=== PATIENT | male | born 1955 | race Caucasian/White ===

== ENCOUNTER 2020-06-26 22:12 | Emergency (ER) | payer MEDICARE ==
[2020-06-26] MEDS ORDERED: ONDANSETRON 4 MG/2 ML VIAL IVP STA (22:43)
[2020-06-26] MEDS ORDERED: SODIUM CHLORIDE 0.9% 1,000 ML IV STA (22:43)
[2020-06-26 23:06] LABS: BASOPHILS % (AUTO) 0.8 %; HCT - HEMATOCRIT 34.8 % (42.0-52.0); HGB - HEMOGLOBIN 11.6 g/dL (14.0-18.0); LYMPHOCYTES % (AUTO) 18.5 %; MEAN CORPUSCULAR HEMOGLOBIN 31.9 pg (27.0-31.0); MEAN CORPUSCULAR HGB CONC 33.3 g/dL (32.0-36.0); MEAN CORPUSCULAR VOLUME 95.6 fL (80.0-94.0); MEAN PLATELET VOLUME 11.4 fL (7.4-11.4); MONOCYTES % (AUTO) 15.3 %; NEUTROPHILS % (AUTO) 63.3 %; PLT - PLATELET COUNT 65 10^3/uL (130-450); RED BLOOD COUNT 3.64 10^6/uL (4.70-6.10); RED CELL DISTRIBUTION WIDTH 15.2 % (12.0-15.0); WHITE BLOOD COUNT 7.1 x10^3/uL (4.8-10.8)
[2020-06-26 23:09] LABS: ABNORMAL LYMPHS % (MANUAL) 0 %
[2020-06-26 23:17] LABS: ALBUMIN 3.8 g/dL (3.2-5.5); ALBUMIN/GLOBULIN RATIO 1.2 (1.0-2.2); CREATININE 0.8 mg/dL (0.6-1.2)
[2020-06-26 23:40] LABS: BAND NEUTROPHILS % (MANUAL) 8 %; DIFFERENTIAL COMMENT MANUAL DIFFERENTIAL; EOSINOPHILS # (MANUAL) 0.1 10^3/uL (0-0.7); LYMPHOCYTES # (MANUAL) 0.6 10^3/uL (1.5-3.5); LYMPHOCYTES % (MANUAL) 9 %; MONOCYTES # (MANUAL) 0.7 10^3/uL (0.0-1.0); NEUTROPHILS # (MANUAL) 5.7 10^3/uL (1.5-6.6); PLATELET ESTIMATE, MANUAL DECREASED (<130,000) (NORMAL); RBC MORPHOLOGY (MULTIPLE) NORMAL APPEARANCE (NORMAL)
[2020-06-27 00:29] LABS: BILIRUBIN,URINE NEGATIVE (NEGATIVE); GLUCOSE, URINE (UA) NEGATIVE (NEGATIVE); KETONES,URINE (UA) NEGATIVE (NEGATIVE); LEUKOCYTE ESTERASE, URINE NEGATIVE (NEGATIVE); NITRITE,URINE NEGATIVE (NEGATIVE); OCCULT BLOOD,URINE NEGATIVE (NEGATIVE); PROTEIN,URINE NEGATIVE (NEGATIVE); UROBILINOGEN,URINE 0.2 (NORMAL) E.U./dL (NORMAL)
[2020-06-27 00:30] LABS: CLARITY,URINE CLEAR (CLEAR)
[2020-06-27] MEDS ORDERED: NS W/20 MEQ KCL 1,000 ML IV STA (00:52)
--- NOTE | 2020-06-27 01:29 | ED Physician Documentation ---
History of Present Illness - Stated complaint Stated Complaint: DIARRHEA/VOMITING - Chief complaint Chief Complaint: Abd Pain - History obtained from History obtained from: Patient - Additonal information Additional information: 64-year-old man with history of pancreatic cancer with metastases to the liver on a second bout of chemo, ninth round recently completed 2 weeks ago, presents with diarrhea that has progressively worsened over the past couple days as well as multiple episodes of nonbloody nonbilious nausea vomiting. Patient states that he threw up 4 times today small volumes of food and was able to keep some food and water down. He also had copious small-volume diarrhea and urge to defecate today. He endorses gassiness and states that his diarrhea has not resolved with Imodium. He believes that this is a chemotherapy side effect. Denies fevers, chest pain, shortness of breath, rash. Does endorse some mid epigastric abdominal pain that is nonradiating, cramping in quality mild and nonradiating, gradual onset and constant. Review of Systems Ten Systems: 10 systems reviewed and negative Constitutional: reports: Myalgias, Fatigue, Weight Loss. denies: Fever, Chills GI: reports: Abdominal Pain, Nausea, Vomiting, Diarrhea : denies: Dysuria Skin: denies: Rash PD PAST MEDICAL HISTORY - Past Medical History Past Medical History: Yes Cardiovascular: None Respiratory: None Neuro: None Endocrine/Autoimmune: None GI: Other : None HEENT: None Psych: None Musculoskeletal: None Derm: None Other Past Medical History: PANCREATIC CANCER... - Past Surgical History Past Surgical History: No - Present Medications Home Medications: Ambulatory Orders Medication Instructions Recorded Confirmed HYDROmorphone [Dilaudid] 2 mg PO Q4H PRN #15 tablet 06/27/20 Ondansetron Odt [Zofran Odt] 4 mg TL Q6H PRN #10 tablet 06/27/20 - Allergies Allergies/Adverse Reactions: Allergies Allergy/AdvReac Type Severity Reaction Status Date / Time No Known Drug Allergies Allergy Verified 06/26/20 22:31 - Social History Does the pt smoke?: No Smoking Status: Never smoker Does the pt drink ETOH?: No Does the pt have substance abuse?: No - Immunizations Immunizations are current?: Yes - POLST Patient has POLST: No PD ED PE NORMAL - Vitals Vital signs reviewed: Yes - General General: Alert and oriented X 3, No acute distress, Well developed/nourished - HEENT HEENT: Atraumatic, PERRL, EOMI - Neck Neck: Supple, no meningeal sign - Cardiac Cardiac: RRR - Respiratory Respiratory: No respiratory distress, Clear bilaterally - Abdomen Abdomen: Non tender, Non distended, Other (Diffuse discomfort to palpation) - Back Back: No CVA TTP - Derm Derm: Normal color - Extremities Extremities: No deformity - Neuro Neuro: Alert and oriented X 3 - Psych Psych: Normal mood, Normal affect Results - Vitals Vitals: Vital Signs - 24 hr 06/26/20 06/26/20 06/27/20 22:24 22:31 00:31 Temperature 37.0 C 37 C 37 C Heart Rate 96 96 95 Respiratory 16 16 16 Rate Blood Pressure 137/84 H 135/82 H 117/67 O2 Saturation 99 99 99 06/27/20 06/27/20 02:00 02:37 Temperature 37 C 37 C Heart Rate 88 88 Respiratory 18 18 Rate Blood Pressure 120/62 120/62 O2 Saturation 98 98 Oxygen O2 Source Room air - Labs Labs: Laboratory Tests 06/26/20 06/26/20 06/27/20 22:51 22:51 00:02 WBC 7.1 RBC 3.64 L Hgb 11.6 L Hct 34.8 L MCV 95.6 H MCH 31.9 H MCHC 33.3 RDW 15.2 H Plt Count 65 L MPV 11.4 Neut # (Auto) Not Reportable Lymph # (Auto) Not Reportable [place] # (Auto) Not Reportable Eos # (Auto) Not Reportable Baso # (Auto) Not Reportable Absolute Nucleated RBC Not Reportable Total Counted 100 Band Neuts % (Manual) 8 Abnorm Lymph % (Manual) 0 Nucleated RBC % Not Reportable Neutrophils # (Manual) 5.7 Lymphocytes # (Manual) 0.6 L Monocytes # (Manual) 0.7 Eosinophils # (Manual) 0.1 Basophils # (Manual) 0.0 Differential Comment MANUAL DIFFERENTIAL Platelet Estimate DECREASED (<130,000) RBC Morph Micro Appear NORMAL APPEARANCE Sodium 134 L Potassium 3.0 L Chloride 102 Carbon Dioxide 23 Anion Gap 9.0 BUN 8 Creatinine 0.8 Estimated GFR (MDRD) 97 Glucose 109 H Calcium 9.0 Total Bilirubin 1.0 AST 29 ALT 59 Alkaline Phosphatase 147 H Total Protein 7.0 Albumin 3.8 Globulin 3.2 Albumin/Globulin Ratio 1.2 Lipase 30 Urine Color YELLOW Urine Clarity CLEAR Urine pH 6.0 Ur Specific [place] <=1.005 Urine Protein NEGATIVE Urine Glucose (UA) NEGATIVE Urine Ketones NEGATIVE Urine Occult Blood NEGATIVE Urine Nitrite NEGATIVE Urine Bilirubin NEGATIVE Urine Urobilinogen 0.2 (NORMAL) Ur Leukocyte Esterase NEGATIVE Ur Microscopic Review NOT INDICATED Urine Culture Comments NOT INDICATED PD MEDICAL DECISION MAKING - ED course ED course: Reevaluated patient after symptomatic care. He is declining potassium supplementation in the emergency room. Also declining CT, stating that he is feeling better and would like to follow-up with his oncologist as an outpatient. He gets his care in [place], [place] and is here only to see a specialist in [place]. He is planning on going home this week. Strict return precautions given. Advised patient to wear compression stockings on the plane and to follow-up with his oncologist as soon as he gets home. He is aware that he may need potassium supplementation. Departure - Departure Disposition: 01 Home, Self Care Clinical Impression: Nausea and vomiting, Diarrhea Condition: Good Instructions: Diet Clear Liquid Dc Prescriptions: HYDROmorphone [Dilaudid] 2 mg PO Q4H PRN #15 tablet PRN Reason: Pain Ondansetron Odt [Zofran Odt] 4 mg TL Q6H PRN #10 tablet PRN Reason: Nausea / Vomiting Comments: You were seen in the emergency department for nausea, vomiting and diarrhea. I hope you feel better. Please try to stay as hydrated as possible and drink Gatorade or Pedialyte. Return to the emergency department if you have any new or worsening symptoms or other concerns. Follow-up with your oncologist Dr. Dangelo as soon as possible. Discharge Date/Time: 06/27/20 02:37
[2020-06-27 02:37] VITALS: BP 120/62
== END 2020-06-27 02:37 | disposition home or self-care (01) ==
LOC: ED 22:12
DX: R19.7 Diarrhea, unspecified (principal); R11.2 Nausea with vomiting, unspecified
CPT/HCPCS: 36415; 80053; 81001; 81003; 83690; 85025; 87086; 96361; 96374; 99284

== ENCOUNTER 2020-06-28 20:14 | Emergency (ER) | payer MEDICARE ==
[2020-06-28] MEDS ORDERED: SODIUM CHLORIDE 0.9% 1,000 ML IV STA ×2 (20:33→20:35)
[2020-06-28] MEDS ORDERED: DIPHENOX/ATROPINE 2.5/0.025 MG TABLET PO STA (20:33)
[2020-06-28] MEDS ORDERED: OCTREOTIDE 100 MCG/ML VIAL SUBQ STA (20:35)
--- NOTE | 2020-06-28 20:44 | ED Physician Documentation ---
History of Present Illness - Stated complaint Stated Complaint: DIARRHEA - Chief complaint Chief Complaint: Abd Pain - History obtained from History obtained from: Patient - History of Present Illness Timing: How many weeks ago (1) Pain level max: 4 Pain level now: 0 - Additonal information Additional information: Patient is a 64-year-old male visiting from [facility], flying home tomorrow. He is currently undergoing chemotherapy for pancreatic cancer. Has had diarrhea for the past week. Seen here 2 days ago, diarrhea has not improved. He did accept blood work, but refused any further work-up at that time. Patient denies any fevers. Occasionally has some abdominal pain. No recent antibiotics. No travel other than to here. Patient states his oncologist told him to come to the emergency department for IV fluids prior to his flight home tomorrow. Nothing makes it better or worse. Review of Systems Ten Systems: 10 systems reviewed and negative Constitutional: denies: Fever, Chills Respiratory: denies: Cough Skin: denies: Rash Musculoskeletal: denies: Neck pain, Back pain Neurologic: denies: Headache PD PAST MEDICAL HISTORY - Past Medical History Cardiovascular: None Respiratory: None Neuro: None Endocrine/Autoimmune: None GI: Other : None HEENT: None Psych: None Musculoskeletal: None Derm: None - Past Surgical History Past Surgical History: No General: Colonoscopy Ortho: Rotator cuff repair - Present Medications Home Medications: Ambulatory Orders Medication Instructions Recorded Confirmed Diphenoxylate/Atropine [Lomotil] 1 - 2 each PO QID PRN #30 tablet 06/28/20 - Allergies Allergies/Adverse Reactions: Allergies Allergy/AdvReac Type Severity Reaction Status Date / Time No Known Drug Allergies Allergy Verified 06/28/20 20:21 - Social History Does the pt smoke?: No Smoking Status: Never smoker Does the pt drink ETOH?: No Does the pt have substance abuse?: No - Immunizations Immunizations are current?: Yes - POLST Patient has POLST: No PD ED PE NORMAL - Vitals Vital signs reviewed: Yes - General General: Alert and oriented X 3, No acute distress, Well developed/nourished - HEENT HEENT: PERRL, Moist mucous membranes - Neck Neck: Supple, no meningeal sign - Cardiac Cardiac: RRR, Strong equal pulses - Respiratory Respiratory: No respiratory distress, Clear bilaterally - Abdomen Abdomen: Soft, Non tender, Non distended - Derm Derm: Warm and dry - Extremities Extremities: No edema - Neuro Neuro: Alert and oriented X 3 - Psych Psych: Normal mood, Normal affect Results - Vitals Vitals: Vital Signs - 24 hr 06/28/20 20:18 Temperature 37.3 C Heart Rate 58 L Respiratory 16 Rate Blood Pressure 115/77 O2 Saturation 97 Oxygen O2 Source Room air - Labs Labs: Laboratory Tests 06/28/20 06/28/20 20:54 20:54 WBC 6.7 RBC 3.86 L Hgb 12.1 L Hct 36.9 L MCV 95.6 H MCH 31.3 H MCHC 32.8 RDW 15.9 H Plt Count 97 L MPV 11.3 Neut # (Auto) 3.6 Lymph # (Auto) 1.8 [place] # (Auto) 1.2 H Eos # (Auto) 0.1 Baso # (Auto) 0.0 Absolute Nucleated RBC 0.00 Nucleated RBC % 0.0 Sodium 135 Potassium 2.7 L Chloride 101 Carbon Dioxide 24 Anion Gap 10.0 BUN 7 Creatinine 0.9 Estimated GFR (MDRD) 84 L Glucose 121 H Calcium 8.5 Phosphorus 2.6 Magnesium 1.6 L Total Bilirubin 1.0 AST 27 ALT 48 Alkaline Phosphatase 132 H Total Protein 6.8 Albumin 3.6 Globulin 3.2 Albumin/Globulin Ratio 1.1 PD MEDICAL DECISION MAKING - ED course Complexity details: reviewed results, re-evaluated patient, considered differential, d/w patient ED course: Patient is well-appearing, nontoxic. Afebrile. He was given IV fluids here. H e continues to decline any further work-up stating that he is scheduled with his doctor on Wednesday for further evaluation of the diarrhea. Given diphenoxylate/atropine as well as octreotide here. Patient counseled regarding signs and symptoms for which I believe and urgent re-evaluation would be necessary. Patient with good understanding of and agreement to plan and is comfortable going home at this time This document was made in part using voice recognition software. While efforts are made to proofread this document, sound alike and grammatical errors may occur. Departure - Departure Disposition: Home, Self Care Clinical Impression: Diarrhea Qualifiers: Diarrhea type: unspecified type Qualified Code(s): R19.7 - Diarrhea, unspecified Nausea and vomiting Qualifiers: Vomiting type: unspecified Vomiting Intractability: non-intractable Qualified Code(s): R11.2 - Nausea with vomiting, unspecified Condition: Good Instructions: ED Diet Vomiting Diarrhea Follow-Up: your,doctor on Wednesday. [Other] Prescriptions: Diphenoxylate/Atropine [Lomotil] 1 - 2 each PO QID PRN #30 tablet PRN Reason: Diarrhea Comments: If the Lomotil is still not helping the diarrhea, you should talk to your doctor about starting octreotide injections. You need to make sure to have further work-up with your doctor on Wednesday as to the cause of your diarrhea as well.
[2020-06-28 21:25] LABS: EOSINOPHILS # (AUTO) 0.1 10^3/uL (0.0-0.7); EOSINOPHILS % (AUTO) 0.7 %; MEAN PLATELET VOLUME 11.3 fL (7.4-11.4)
[2020-06-28 21:37] LABS: BASOPHILS % (AUTO) 0.6 %; HCT - HEMATOCRIT 36.9 % (42.0-52.0); HGB - HEMOGLOBIN 12.1 g/dL (14.0-18.0); LYMPHOCYTES # (AUTO) 1.8 10^3/uL (1.5-3.5); LYMPHOCYTES % (AUTO) 26.5 %; MEAN CORPUSCULAR HEMOGLOBIN 31.3 pg (27.0-31.0); MEAN CORPUSCULAR HGB CONC 32.8 g/dL (32.0-36.0); MEAN CORPUSCULAR VOLUME 95.6 fL (80.0-94.0); MONOCYTES # (AUTO) 1.2 10^3/uL (0.0-1.0); MONOCYTES % (AUTO) 17.4 %; NEUTROPHILS # (AUTO) 3.6 10^3/uL (1.5-6.6); NEUTROPHILS % (AUTO) 54.1 %; PLT - PLATELET COUNT 97 10^3/uL (130-450); RED BLOOD COUNT 3.86 10^6/uL (4.70-6.10); RED CELL DISTRIBUTION WIDTH 15.9 % (12.0-15.0); WHITE BLOOD COUNT 6.7 x10^3/uL (4.8-10.8)
[2020-06-28 21:38] LABS: ALBUMIN 3.6 g/dL (3.2-5.5); ALBUMIN/GLOBULIN RATIO 1.1 (1.0-2.2); CALCIUM 8.5 mg/dL (8.5-10.3); CREATININE 0.9 mg/dL (0.6-1.2); MAGNESIUM 1.6 mg/dL (1.7-2.8); PHOSPHORUS 2.6 mg/dL (2.5-4.6); POTASSIUM 2.7 mmol/L (3.5-5.0); TOTAL PROTEIN 6.8 g/dL (6.7-8.2)
[2020-06-28] MEDS ORDERED: POTASSIUM CHLORIDE 20 MEQ TABLET PO STA (21:40)
[2020-06-28] MEDS ORDERED: MAGNESIUM SULFATE 2 GRAM 2 GM/50 ML BAG IV ONE (21:40)
[2020-06-28] MEDS ORDERED: ASPIRIN CHEW 81 MG TABLET PO STA (23:25)
[2020-06-28 23:41] VITALS: BP 101/69
--- NOTE | 2020-06-29 01:34 | ED Physician Documentation ---
ED Addendum - Addendum Addendum: 06/29/20 01:24 Patient awaiting completion of IV fluids and IV magnesium at end of Dr. Chino shift and continues to have these infusions at beginning of my shift. I note patient appears to be in atrial fibrillation on the monitor and thus I ordered EKG which confirms atrial fibrillation. I discussed this with the patient and this is a new diagnosis for him. He is in NAD and despite not taking any prescription medications, his rate is normal (70s-90s). I discussed his case with Dr. Lema regarding anticoagulation; given that his CHAD2 score is zero, she recommends 81mg ASA QD and no other anticoagulation. I discussed this with patient including the diagnosis and recommendation, as well as the need for expeditious follow up and he understands and agrees with this plan. He has f/u already scheduled for Wednesday.
== END 2020-06-28 23:49 | disposition home or self-care (01) ==
LOC: ED 20:14
DX: R19.7 Diarrhea, unspecified (principal); R11.2 Nausea with vomiting, unspecified; I48.91 Unspecified atrial fibrillation; C25.9 Malignant neoplasm of pancreas, unspecified
CPT/HCPCS: 36415; 80053; 83735; 84100; 85025; 93005; 96361; 96365; 96372; 96375; 99284; 99285; A9270; J2354